=== PATIENT | male | born 1965 | race Caucasian/White ===

== ENCOUNTER 2017-03-10 16:21 | Emergency (ER) | payer MEDICARE ==
[~2017-03-10] VITALS: Ht 177.8 cm; Wt 145.0 kg
[2017-03-10] MEDS ORDERED: SODIUM CHLORIDE FLUSH 10ML SYR IVF ONE ×2 (17:00→18:30)
[2017-03-10 17:19] LABS: HEMOGLOBIN 14.9 g/dL (13.7-18.0); WHITE BLOOD COUNT 6.7 x10^3/uL (3.4-10)
[2017-03-10 17:27] LABS: ASPARTATE AMINO TRANSFERASE 33 U/L (15-37); BLOOD UREA NITROGEN 15 mg/dL (7-18)
[2017-03-10] MEDS ORDERED: GOLYTELY 4,000ML ORAL.SOL PO ONE (18:00)
[2017-03-10] MEDS ORDERED: SODIUM CHLORIDE 0.9% 1,000ML IVBOLUS ONE (18:30)
[2017-03-10 19:45] VITALS: BP 120/80
== END 2017-03-10 20:51 | disposition home or self-care (01) ==
LOC: ED 20:03
DX: K59.00 Constipation, unspecified (principal); G30.9 Alzheimer's disease, unspecified; Z86.718 Personal history of other venous thrombosis and embolism
CPT/HCPCS: 36415; 74020; 74177; 80053; 83690; 85025; 85610; 85730; 99285